=== PATIENT | female | born 1935 | race Caucasian/White ===

== ENCOUNTER 2016-11-01 05:11 | Emergency (ER) | payer MEDICARE ==
[~2016-11-01] VITALS: Ht 152.4 cm; Wt 49.1 kg
[~2016-11-01 05:11] MED LIST: CEPH-512 PO; DULO20CA18 PO; ESTR0.5T PO; FAMO20TA4 PO; FURO-129 PO; HYDR2TAB28 PO; INSU100V7 SUBQ; LEVO125T6 PO; LORA1TAB PO; METH5TAB3 PO; POLY17PO6 PO
--- NOTE | 2016-11-01 05:16 | ED.REPORT ---
HPI-General Illness Date of Service Nov 01, 2016 ED Provider: Dr. Charli Corado M.D. An 81 year old female with a medical history including pancreatic cancer, hypothyroidism, diabetes, and peripheral neuropathy presents to the ED with low back pain after a ground level fall just prior to arrival. The patient also reports neck pain, left shoulder pain, bilateral hip pain, and bilateral leg pain. She did not hit her head or lose consciousness and was able to ambulate after the fall. The patient has had similar falls in the past. She is taking an antibiotic to treat a UTI and is not on a blood thinner. EMS found the patient with a blood pressure of 130/70 and O2 sats of 93% on room air, with otherwise normal vital signs. Nursing Notes Stated Complaint: GLF/LOW BACK PAIN Nursing Notes Reviewed: Yes Allergies: Coded Allergies: Sulfa (Sulfonamide Antibiotics) (Verified Allergy, Severe, 09/11/16) aspirin (Verified Allergy, Severe, 09/11/16) benzocaine (Verified Allergy, Severe, 09/11/16) codeine (Verified Allergy, Severe, 09/11/16) diphenhydramine (Verified Allergy, Severe, 08/17/15) epinephrine (Verified Allergy, Severe, 08/17/15) hydrocodone (Verified Allergy, Severe, 08/17/15) meperidine (Verified Allergy, Severe, 08/17/15) TAPE (Verified Allergy, Unknown, 08/17/15) Tetanus Vaccines and Toxoid (Verified Allergy, Unknown, 11/01/16) belladonna alkaloids (Verified Allergy, Unknown, 11/01/16) erythromycin base (Verified Allergy, Unknown, 11/01/16) fluconazole (Verified Allergy, Unknown, 11/01/16) lactose (Verified Allergy, Unknown, 11/01/16) lansoprazole (Verified Allergy, Unknown, 11/01/16) lidocaine (Verified Allergy, Unknown, 11/01/16) magnesium (Verified Allergy, Unknown, 11/01/16) omeprazole (Verified Allergy, Unknown, 11/01/16) oxycodone (Verified Allergy, Unknown, 11/01/16) ranitidine (Verified Allergy, Unknown, 11/01/16) vancomycin (Verified Allergy, Unknown, 11/01/16) Uncoded Allergies: ALKALOIDS (Allergy, Unknown, 2/20/17) Scheduled Cephalexin (Keflex) 500 Mg Capsule 500 MG PO TID Duloxetine (Duloxetine) 20 Mg Capsule.dr 20 MG PO BID Estradiol (Estradiol) 0.5 Mg Tablet 0.5 MG PO DAILY Famotidine (Famotidine) 20 Mg Tablet 60 MG PO BID Furosemide (Lasix) 20 Mg Tablet 10 MG PO DAILY Hydromorphone (Hydromorphone) 2 Mg Tablet 2 MG PO Q4-Q6 Insulin Glargine (Lantus U100 Insulin Vial) 100 Unit/Ml Vial 4 UNIT SUBQ am Levothyroxine (Levothyroxine) 125 Mcg Tablet 125 MCG PO DAILY Methadone (Methadone) 5 Mg Tablet 2.5 MG PO QPM Methadone (Methadone) 5 Mg Tablet 5 MG PO QPM Polyethylene Glycol 3350 (Miralax) 17 Gm Powd.pack 17 GM PO DAILY Scheduled PRN Lorazepam (Lorazepam) 1 Mg Tablet 1 MG PO prm PRN PRN For Anxiety or Agitation Miscellaneous Medications Insulin Glargine (Lantus U100 Insulin Vial) 100 Unit/Ml Vial 6 UNIT SUBQ General Time Seen by MD: 05:16 Chief Complaint Other (Ground Level Fall) Hx Obtained From: Patient, EMS Arrived By: Ambulance Sudden in Onset?: Yes Onset Occurred: Just prior to arrival Symptom Duration: Since onset Caused by: Accidental, Fall on ground Context: Occurred at: Home injury Location: : Back: Hip left: Hip right: Leg left: Leg right: Neck: Shoulder left Quality: Painful Severity: Current: Moderate Severity: Maximum: Moderate Associated with: Denies: Inability to bear weight, Loss of consciousness, Vomiting Pertinent Negative: Relieved by nothing Context Related History: Reports Cancer, Reports Diabetes mellitus Recent Healthcare: No recent doctor visit Similar Sx Previous: Yes Past Medical History Past Medical History Notes: PCP: Dr. Meredith Past Medical History Hx Pancreatic cancer Depression and anxiety Hypothyroidism Diabetes mellitus type 2 Irritable bowel disease GERD Atrophic vaginitis Peripheral neuropathy Past Surgical History Whipple surgery - 1999 Cystocele/rectocele repair Salpingo-oophorectomy Tonsillectomy Smoking History Former Smoker Social History Alcohol Use: Denies alcohol use Drug Use: Denies drug use Other Social History: Lives alone Ambulatory Status Walker Review of Systems Full Review of Systems Respiratory: Denies: Non-productive cough, Shortness of breath GI: Denies: Diarrhea, Vomiting Musculoskeletal: Reports: Back pain (Low), Extremity pain (Bilateral legs), Joint pain (Left shoulder, bilateral hips), Neck pain Neurologic: Denies: Change LOC, Headache Complete sys rev & neg: except as marked. Physical Exam Vital Signs Vital Signs Date Time Temp Pulse Resp B/P Pulse Ox O2 Delivery O2 Flow Rate FiO2 11/01/16 05:30 37.0 82 20 108/60 94 Room Air Initial VS: Reviewed ENT: Conjunctiva normal, No scleral icterus Abdomen / GI: Soft, Non-tender Skin: Warm, Dry Neurologic: Alert, Oriented, Nonfocal Psychiatric: Mood/affect normal, Behavior normal, Normal thought content General/Constitutional: Awake, Alert Head / Eyes: Atraumatic (Non-tender), Normocephalic Neck: Supple, Full range of motion Neck / Muscle Tenderness: Positive: Midline tenderness low (C7-T1) Respiratory / Chest: Breath sounds NL, Breath sounds = bilat, No respiratory distress, No chest tenderness Cardiovascular: Heart rate NL, Regular rhythm, Heart sounds NL Upper Extremities Upper Extremity / MS: No deformity Right Shoulder: Positive: Tenderness present... Trauma / Burn / Environmental: Positive: Abrasion (Old, over right lateral olecranon) Lower Extremity / Pelvis / MS: Inspection NL, Full range of motion, No deformity, Pelvis stable, Pelvis non-tender Lower Extremities Normals: Hip R exam normal, Hip L exam normal Re-Eval/Medical Decision Med Decision/Clinical Course 7-year-old with progressive gait instability has suffered yet another ground-level fall. She is complaining primarily of low back pain, neck pain, and left shoulder pain. Her hips rotate normally without pain. Her pelvis is stable. She has abrasion on her right elbow but is moving the arm without difficulty. No head impact and no findings on palpation exam. Signed out at 6 AM with CAT scans and x-rays pending to Dr. Castillo Time of Eval: 05:51 Patient Status: Condition improved Re-Evaluation/Progress Note: Discussed with patient plan for transfer of care to Dr. Castillo Discharge & Departure Shift Change Sign-Out Patient Care Transferred: Yes (Dr. Castillo) Discussed Complaint(s): Yes Imaging Studies: Ordered, not yet done Response to Therapy: Improved Primary Impression: Fall Encounter type: initial encounter Qualified Code: W19.XXXA - Unspecified fall, initial encounter Additional Impressions: Low back pain Chronicity: acute Back pain laterality: midline Sciatica presence: without sciatica Qualified Code: M54.5 - Low back pain Neck pain Discharge Condition All VS Reviewed: Yes Condition: Stable Referrals: Matilde Meredith MD (PCP) Care Transferred to: Dr. Castillo Care Transferred at: 06:00 [place] Attestation Portions of this note were transcribed by Bernadette Greer. I, Dr. Corado, personally performed the history, physical exam, and medical decision-making; I reviewed and confirmed the accuracy of the information in the transcribed note. Signed by: Santana Barakat, 11/01/2016, 06:10 copies to: Matilde Meredith MD, Christopher W MD Nov 01, 2016 05:16 BERNADETTE GREER Nov 01, 2016 05:30
[2016-11-01 05:30] VITALS: BP 108/60; PULSE 82; RESP 20; O2SAT 94
--- NOTE | 2016-11-01 08:02 | DRSVH ---
PROCEDURE: CT BRAIN WITHOUT CONTRAST ([id number]) INDICATIONS: 81 year old woman fell and hit head. TECHNIQUE: Noncontrast 4.5 mm thick angled axial sections acquired from the foramen magnum to the vertex, with c oronal reformats. COMPARISON: [facility], CT, BRAIN W/O CONTRAST, 11/01/2014, 12:42. FINDINGS: Image quality: Excellent. CSF spaces: Basal cisterns are patent. No extra-axial fluid collections. The ventricles are symmet maximilian in size and shape. Brain: No intracranial bleeds or masses. There is cerebral volume loss for age, with resultant vent ricular and sulcal prominence. There are periventricular and deep white matter chronic small vessel ischemic changes. There is intracranial internal carotid artery atherosclerosis. Skull and face: Calvarium and visualized facial bones appear intact, without suspicious lesions. Sinuses: Visualized sinuses and mastoids are clear. IMPRESSION: 1. No acute intracranial abnormalities. 2. Cerebral volume loss and chronic microvascular ischemic changes. No significant discrepancy with the manager shift radiology preliminary report. Dictated by: Mal Coello M.D. on 11/01/2016 at 7:59 Approved by: Mal Coello M.D. on 11/01/2016 at 8:00
--- NOTE | 2016-11-01 08:42 | DRSVH ---
PROCEDURE: CT CERVICAL SPINE WITHOUT CONTRAST ([id number]) INDICATIONS: falls, multiple pain low back TECHNIQUE: Noncontrast 3 mm thick sections acquired from the skull base to the T4 level. Sagittal and coronal r eformats were then constructed. For radiation dose reduction, the following was used: automated exp osure control, adjustment of mA and/or kV according to patient size. COMPARISON: None. FINDINGS: Image quality: Excellent. Bones: No fractures or dislocations. Visualized superior ribs are intact. Mild degenerative change s noted. Soft tissues: Prevertebral soft tissues are normal in thickness. No paravertebral hematomas. No ap ical pneumothoraces. There is moderate emphysema. IMPRESSION: No cervical spine fracture. No significant discrepancy with the shiftman radiology preliminary report. Dictated by: Mal Coello M.D. on 11/01/2016 at 8:39 Approved by: Mal Coello M.D. on 11/01/2016 at 8:41
--- NOTE | 2016-11-01 08:49 | DRSVH ---
PROCEDURE: CT LUMBAR SPINE WITHOUT CONTRAST ([id number]) INDICATIONS: falls, multiple pain low back TECHNIQUE: Noncontrast 3 mm thick sections acquired from the T12 level to the sacrum. Sagittal and coronal refo rmats were constructed. For radiation dose reduction, the following was used: automated exposure co ntrol. COMPARISON: [facility], CR, XR LUMBAR SPINE 2 OR 3VW, 07/07/2015, 15:01. [facility], , SPINE THORACIC 3VW, 09/25/2014, 15:43. FINDINGS: Image quality: Excellent. Bones: There is grade 1 anterolisthesis of L4 over L5 and L5 over S1. There is mild anterior wedge d eformity of T12 consistent with mild compression fracture. There is no posterior displacement of fra cture fragments. No suspicious lytic or blastic bony lesions. There is degenerative disc disease, mo derate at L3-L4, mild at L2FLC, L4-L5 and L5-S1. There is severe facet arthropathy at L4-L5 and L5-S1 bilaterally. Central spinal caliber is of normal overall caliber. No pars defects. Soft tissues: No retroperitoneal masses or hematomas. Visualized aorta is normal in caliber. Moder ate aortic and iliac artery atherosclerosis. IMPRESSION: 1. Mild T12 vertebral compression fracture, uncertain chronicity but may be acute. The fracture is ne w since 07/07/2015. 2. Degenerative disc disease and facet arthropathy as described. No significant discrepancy with the shift stacker radiology preliminary report. Dictated by: Mal Coello M.D. on 11/01/2016 at 8:41 Approved by: Mal Coello M.D. on 11/01/2016 at 8:47
[2016-11-01] MEDS ORDERED: 0.9% Sodium Chloride 500 ML IV ONE (09:10)
[2016-11-01 09:55] LABS: BASOPHILS % (AUTO) 0.1 % (0-3); EOSINOPHILS % (AUTO) 9.3 % (0-5); MONOCYTES % (AUTO) 4.5 % (4-12); Mean Corpuscular Hemoglobin 30.6 pg (27.0-35.0); Mean Corpuscular Volume 93.4 fL (81-100); NEUTROPHILS % (AUTO) 80.5 % (40-74); Platelet Count 199 bil/L (150-400)
[2016-11-01 10:06] LABS: APPEARANCE,URINE HAZY (CLEAR,HAZY); COLOR,URINE YELLOW (YELLOW); OCCULT BLOOD,URINE NEGATIVE (NEGATIVE); PH,URINE 5.5 (5.0-8.0); UROBILINOGEN,URINE NORMAL (NORMAL)
--- NOTE | 2016-11-01 10:07 | DRSVH ---
PROCEDURE: X-RAY CHEST ONE VIEW, PORTABLE ([id number]) INDICATIONS: generalized weakness TECHNIQUE: One view of the chest was acquired. COMPARISON: [facility], CR, XR CHEST 1VW (PORTABLE), 08/17/2015, 20:36. FINDINGS: Surgical changes and devices: None. Lungs and pleura: No pleural effusions or pneumothorax. There is perivascular prominence suggesting mild edema. There is an irregular nodular opacity in the left suprahilar region measuring approxima tely 9 mm which may represent possible confluent vascular structures. There is also an indistinct no dular opacity in the right upper lung zone measuring approximately 8 mm. Mediastinum: Mediastinal contours appear unchanged. Heart size is normal. Bones and chest wall: No suspicious bony lesions. Overlying soft tissues appear unremarkable. IMPRESSION: 1. Bilateral nodular opacities as described may represent confluence of vascular structures versus p ulmonary nodules. Recommend a short term followup PA and lateral repeat study for further evaluation . 2. Mild pulmonary vascular prominence suggesting mild pulmonary edema. Dictated by: Surinder Gil M.D. on 11/01/2016 at 9:59 Approved by: Surinder Gil M.D. on 11/01/2016 at 10:05
[2016-11-01 10:15] LABS: TROPONIN T 0.013 ug/L (0.0-0.011)
--- NOTE | 2016-11-01 10:17 | DRSVH ---
PROCEDURE: X-RAY LEFT SHOULDER, MINIMUM TWO VIEWS ([id number]) INDICATIONS: falls, pain TECHNIQUE: 3 views of the shoulder were acquired. COMPARISON: None. FINDINGS: Bones: No fractures or dislocations. No suspicious bony lesions. Visualized ribs appear intact. Soft tissues: No suspicious soft tissue calcifications. IMPRESSION: No displaced fracture seen. If there is continued pain, followup exam or additional lucía ging such as MRI or CT could be performed for further assessment. Dictated by: Dante Hernandez Maricel Interpreted: Georgiana Nogueira MD on 11/01/2016 at 10:16 Transcribed by: ROSARIO on 11/01/2016 at 10:17 Approved by: Georgiana Nogueira M.D. on 11/01/2016 at 16:28
[2016-11-01 10:26] LABS: Magnesium 1.7 mg/dL (1.6-2.6)
[2016-11-01 11:04] VITALS: BP 115/67; PULSE 94; RESP 18; O2SAT 90
== END 2016-11-01 13:15 ==
LOC: SED 05:11
DX: M54.5 Low back pain (principal); M54.2 Cervicalgia; W18.30XA Fall on same level, unspecified, initial encounter; Y93.89 Activity, other specified; Y92.009 Unspecified place in unspecified non-institutional (private) residence as the place of occurrence of the external cause; Y99.8 Other external cause status; E11.40 Type 2 diabetes mellitus with diabetic neuropathy, unspecified; K21.9 Gastro-esophageal reflux disease without esophagitis; Z85.07 Personal history of malignant neoplasm of pancreas; Z87.891 Personal history of nicotine dependence; Z88.1 Allergy status to other antibiotic agents; Z88.2 Allergy status to sulfonamides; Z88.5 Allergy status to narcotic agent; Z88.8 Allergy status to other drugs, medicaments and biological substances; Z79.4 Long term (current) use of insulin; E73.9 Lactose intolerance, unspecified
CPT/HCPCS: 36415; 70450; 71010; 72125; 72131; 73030; 80053; 81000; 83735; 83880; 84484; 85025; 87086; 87088; 90791; 93005; 99285; J7040